=== PATIENT | male | born 1970 | race Two or more races ===

== ENCOUNTER 2017-07-19 00:16 | Emergency (ER) | payer OTHER ==
[2017-07-19] MEDS ORDERED: ONDANSETRON 4 MG TAB.RAPDIS PO ONE (00:24)
--- NOTE | 2017-07-19 00:25 | ER Document Report ---
ED General - General Chief Complaint: ETOH Abuse Stated Complaint: ETOH Time Seen by Provider: 07/19/17 00:24
--- NOTE | 2017-07-19 01:38 | ER Document Report ---
ED Psych Disorder / Suicide - General Chief Complaint: ETOH Abuse Stated Complaint: ETOH Time Seen by Provider: 07/19/17 00:24 Past Medical History - Social History Smoking Status: Unknown if Ever Smoked Chew tobacco use (# tins/day): No Frequency of alcohol use: ETOH
--- NOTE | 2017-07-19 06:10 | ER Document Report ---
ED Substance Abuse / Acc. OD - General Mode of Arrival: Medic Information source: Patient, Emergency Med Personnel - HPI Patient complains to provider of: Alcohol abuse - General Chief Complaint: ETOH Abuse Stated Complaint: ETOH Time Seen by Provider: 07/19/17 00:24 Notes: Patient is a 46-year-old Faroese-speaking male presented to the emergency department after being found by [employer] on a bench. Patient is intoxicated and a 40 ounce beer was also found in his backpack. Patient complains of some pain in his back. Patient is making claims that tomorrow he is going to be and he is suicidal. Patient also states that he is very sad about his family. Patient has been drinking a lot of alcohol and has had multiple episodes of nausea and vomiting. Patient's HPI is limited because he is intoxicated. Patient has been evaluated in this emergency department for similar symptoms in the past. (JANIE RAMOS) Past Medical History - General Information source: Patient - Social History Smoking Status: Unknown if Ever Smoked Chew tobacco use (# tins/day): No Frequency of alcohol use: Heavy Family History: None Surgical Hx: Negative Review of Systems - Review of Systems Constitutional: No symptoms reported EENT: No symptoms reported Cardiovascular: No symptoms reported Respiratory: No symptoms reported Gastrointestinal: See HPI, Nausea, Vomiting Genitourinary: No symptoms reported Male Genitourinary: No symptoms reported Musculoskeletal: See HPI, Back pain Skin: No symptoms reported Hematologic/Lymphatic: No symptoms reported Neurological/Psychological: See HPI -: Yes All other systems reviewed and negative Physical Exam - Notes Notes: GENERAL: Alert, intoxicated. Mild distress. HEAD: Normocephalic, atraumatic. EYES: Appear normal. Pupils equal, round, and reactive to light. ENT: Dry mucus membranes, tongue midline. NECK: Full range of motion. Supple. Trachea midline. LUNGS: Clear to auscultation bilaterally, no wheezes, rales, or rhonchi. No respiratory distress. HEART: Regular rate and rhythm. No murmurs, gallops, or rubs. ABDOMEN: Soft, non-tender. Non-distended. Normal bowel sounds. EXTREMITIES: Moves all 4 extremities spontaneously. Normal strength. No edema. NEUROLOGICAL: Alert and oriented x3. Normal speech, Faroese-speaking. GSC 15. PSYCH: Normal affect, normal mood. SKIN: Warm, dry, normal turgor. No rashes or lesions noted. (JANIE RAMOS) Course - Re-evaluation Re-evalutation: 07/19/17 07:01 Patient has been a difficult historian due to alcohol intoxication. Patient had initially stated that he was suicidal but no plan. Patient has been evaluated for alcohol abuse and suicidal ideation in the past with no plan. Patient is able to ambulate without difficulty and is able to tolerate p.o. He will be discharged home and is to follow-up with A. Stable for discharge. ( ANTWON GARCIA) Discharge - Discharge Clinical Impression: Alcohol abuse Alcohol intoxication Qualifiers: Complication of substance-induced condition: uncomplicated Qualified Code(s): F10.920 - Alcohol use, unspecified with intoxication, uncomplicated Condition: Stable Disposition: HOME, SELF-CARE Instructions: Acute Alcohol Intoxication ([facility]) Referrals: [facility] [Provider Group] - Follow up as needed [facility] [Provider Group] - Follow up as needed Scribe Attestation: 07/19/17 07:02 I personally performed the services described in the documentation, reviewed and edited the documentation which was dictated to the scribe in my presence, and it accurately records my words and actions. (ANTWON GARCIA) Scribe Documentation - Scribe Written by Scribtrent:: Janie Ramos, Dixie, 07/19/2017 6:10 acting as scribe for :: Marvel
[2017-07-19 07:05] VITALS: BP 104/70
== END 2017-07-19 07:07 | disposition home or self-care (01) ==
LOC: EDBD → ER 00:16
DX: F10.920 Alcohol use, unspecified with intoxication, uncomplicated (principal); R11.2 Nausea with vomiting, unspecified
CPT/HCPCS: 99284; S0119

== ENCOUNTER 2017-09-30 23:09 | Emergency (ER) | payer SELFPAY ==
--- NOTE | 2017-10-01 03:26 | ER Document Report ---
ED General - General Chief Complaint: Palpitations Stated Complaint: ETOH RACING HEART BEAT Time Seen by Provider: 10/01/17 03:26 Notes: Patient is a 46-year-old male well-known to ER who presents with complaint of feeling his heart is palpitating. He has a long history of alcoholism. He comes here frequently for chest pain whenever he is intoxicated. He mentions that he does still have the same chest pain that he always has the left upper portion of his chest just outside his sternum. This pain is again reproducible like it usually is. Patient denies any cocaine use. He has no other complaints at this time. TRAVEL OUTSIDE OF THE [place] IN LAST 30 DAYS: No - Related Data Allergies/Adverse Reactions: No Known Allergies Allergy (Unverified 09/30/17 23:18) Past Medical History - Social History Smoking Status: Current Some Day Smoker Frequency of alcohol use: Heavy Drug Abuse: None Family History: None Patient has suicidal ideation: No Patient has homicidal ideation: No Renal/ Medical History: Denies: Hx Peritoneal Dialysis Review of Systems - Review of Systems Notes: My Normal Review Basic REVIEW OF SYSTEMS: CONSTITUTIONAL : Denies fever, chills, or sweats. Denies recent illness. EENT: Denies eye, ear, throat, or mouth pain or symptoms. Denies nasal or sinus congestion. CARDIOVASCULAR: Chest pain, palpitations. RESPIRATORY: Denies cough, cold, or chest congestion. Denies shortness of breath, difficulty breathing, or wheezing. GASTROINTESTINAL: Denies abdominal pain. Denies nausea, vomiting, or diarrhea. Denies constipation. Last BM: MUSCULOSKELETAL: Denies neck or back pain or joint pain or swelling. SKIN: Denies rash or skin lesions. NEUROLOGICAL: Denies altered mental status or loss of consciousness. Denies headache. Denies weakness or paralysis or loss of use of either side. Denies problems with gait or speech. Denies sensory or motor loss. ALL OTHER SYSTEMS REVIEWED AND NEGATIVE. Physical Exam - Vital signs Vitals: Temp Pulse Resp BP Pulse Ox 98.4 F 86 18 113/72 100 09/30/17 23:18 09/30/17 23:18 09/30/17 23:18 09/30/17 23:18 09/30/17 23:18 - Notes Notes: General Appearance: Well nourished, alert, cooperative, no acute distress, no obvious discomfort. Well appearing. Vitals: reviewed, See vital signs table. Head: no swelling or tenderness to the head Eyes: PERRL, EOMI, Conjuctiva clear Mouth: No decreasd moisture Chest wall: Pain to palpation over left parasternal area. Lungs: No wheezing, No rales, No rhonci, No accessory muscle use, good air exchange bilaterally. Heart: Normal rate, Regular rythm, No murmur, no rub Abdomen: Normal BS, soft, No rigidity, No abdominal tenderness, No guarding, no rebound, no abdominal masses, no organomegaly Extremities: strength 5/5 in all extremities, good pulses in all extremities, no swelling or tenderness in the extremities, no edema. Skin: warm, dry, appropriate color, no rash Neuro: speech clear, oriented x 3, normal affect, responds appropriately to questions. Renal nerves II through XII are intact. Normal gait in the room. Moves all extremities without difficulty. Normal coordination. Course - Re-evaluation Re-evalutation: 10/01/17 03:26 EKG is reviewed and interpreted by me. EKG shows normal sinus rhythm with rate of [address] segment elevation or depression. No ischemic T-wave inversions. UT interval, QRS duration, QTc intervals are within normal range. 10/01/17 04:45 She is EKG and cardiac enzymes are negative. This pain is just like his typical recurrent pain and palpitations that he has been seen here for many many times in the past. His pain is reproducible palpation. I talked to him at length informed him he needs to cut back on his alcohol intake. He informed me that it is difficult for him to do. He also then informed me that he does not have money for place to live. I informed him that this is another good reason why he should try to cut back on alcohol use as all the money spends an alcohol could probably help him afford living accommodations. Encouraged to return to ER if he has recurrent worsening chest pain, vomiting, signs of alcohol withdrawal, or she feels unwell. Patient agrees with plan will be discharged home. Dictation of this chart was performed using voice recognition software; therefore, there may be some unintended grammatical errors. 10/01/17 06:15 - Vital Signs Vital signs: Temp Pulse Resp BP Pulse Ox 98.4 F 86 18 113/72 100 09/30/17 23:18 09/30/17 23:18 09/30/17 23:18 09/30/17 23:18 09/30/17 23:18 - Laboratory Result Diagrams: 10/01/17 03:40 Laboratory results interpreted by me: 10/01/17 03:40 Sodium 153.1 H Chloride 113 H Discharge - Discharge Clinical Impression: Palpitations, Alcohol abuse Chest pain Qualifiers: Chest pain type: unspecified Qualified Code(s): R07.9 - Chest pain, unspecified Condition: Good Disposition: HOME, SELF-CARE Instructions: Family Physicians / Practices Additional Instructions: Please cut back on your alcohol intake gradually until you are no longer drinking alcohol. Your tests today showed no concerning findings. Your EKG was normal. Please return to the ER if you have worsening chest pain or feel unwell. I have provided a list of local doctors. Please follow up with one of them due to your recurrent chronic chest pain.
[2017-10-01 04:30] LABS: ANION GAP 15 (5-19); BLOOD UREA NITROGEN 14 mg/dL (7-20); CALCIUM 9.4 mg/dL (8.4-10.2); CARBON DIOXIDE 25 mmol/L (22-30); CHLORIDE 113 mmol/L (98-107); CREATININE RESULT 0.86 mg/dL (0.52-1.25); GLUCOSE 91 mg/dL (75-110); POTASSIUM 3.8 mmol/L (3.6-5.0); SODIUM 153.1 mmol/L (137-145)
[2017-10-01 07:34] VITALS: BP 108/67
--- NOTE | 2017-10-01 15:28 | EKG REPORT ---
SEVERITY:- NORMAL ECG - SINUS RHYTHM : Confirmed by: Marleny Gay 01-Oct-2017 15:27:44
== END 2017-10-01 07:34 | disposition home or self-care (01) ==
LOC: ER 23:09
DX: R00.2 Palpitations (principal); R07.9 Chest pain, unspecified; F10.20 Alcohol dependence, uncomplicated; F17.200 Nicotine dependence, unspecified, uncomplicated
CPT/HCPCS: 36415; 80048; 83735; 84484; 93005; 93010; 99285

== ENCOUNTER 2017-10-21 21:44 | Emergency (ER) | payer SELFPAY ==
--- NOTE | 2017-10-21 22:49 | ER Document Report ---
HPI - HPI Pain Level: 3 Past Medical History - Social History Family History: None Renal/ Medical History: Denies: Hx Peritoneal Dialysis Vertical Provider Document - INFECTION CONTROL TRAVEL OUTSIDE OF THE [place] IN LAST 30 DAYS: No - RESPIRATORY O2 Sat by Pulse Oximetry: 97 Course - Vital Signs Vital signs: Temp Pulse Resp BP Pulse Ox 98.4 F 89 17 132/93 H 97 10/21/17 22:06 10/21/17 22:06 10/21/17 22:06 10/21/17 22:06 10/21/17 22:06
--- NOTE | 2017-10-21 22:54 | ER Document Report ---
ED General - General Chief Complaint: R hand pain Stated Complaint: RIGHT HAND PAIN Time Seen by Provider: 10/21/17 22:33 Mode of Arrival: Medic Information source: Patient Notes: Chris used for interpretation. Patient is complaining of snakebite to his right hand dorsal webspace between the thumb and index finger on . He saw pus come out and the pain is from the elbow down to his hand. There is one puncture wound. He also is complaining of vomiting blood this evening after drinking an extra 2-3 beers and he states he is an alcoholic. He says he has generalized abdominal pain. TRAVEL OUTSIDE OF THE [place] IN LAST 30 DAYS: No - Related Data Allergies/Adverse Reactions: No Known Allergies Allergy (Unverified 09/30/17 23:18) Past Medical History - General Information source: Patient - Social History Smoking Status: Current Every Day Smoker Frequency of alcohol use: Heavy Drug Abuse: None Lives with: Homeless Family History: None - Medical History Notes: alcoholism Renal/ Medical History: Denies: Hx Peritoneal Dialysis Surgical Hx: Negative Review of Systems - Review of Systems Constitutional: No symptoms reported EENT: No symptoms reported Cardiovascular: No symptoms reported Respiratory: No symptoms reported Gastrointestinal: See HPI Genitourinary: No symptoms reported Male Genitourinary: No symptoms reported Musculoskeletal: No symptoms reported Skin: See HPI Hematologic/Lymphatic: No symptoms reported Neurological/Psychological: No symptoms reported Physical Exam - Vital signs Vitals: Temp Pulse Resp BP Pulse Ox 98.4 F 89 17 132/93 H 97 10/21/17 22:06 10/21/17 22:06 10/21/17 22:06 10/21/17 22:06 10/21/17 22:06 Interpretation: Normal Notes: smells of ETOH - General General appearance: Appears well, Alert In distress: None - HEENT Head: Normocephalic, Atraumatic Eyes: Normal Conjunctiva: Normal Pupils: PERRL Mucous membranes: Dry Neck: Supple. No: Lymphadenopathy - Respiratory Respiratory status: No respiratory distress Chest status: Nontender Breath sounds: Normal Chest palpation: Normal - Cardiovascular Rhythm: Regular Heart sounds: Normal auscultation Murmur: No - Abdominal Inspection: Normal Distension: No distension Bowel sounds: Normal Tenderness: Nontender. No: Tender Organomegaly: No organomegaly - Back Back: Normal, Nontender - Extremities General upper extremity: Normal inspection, Nontender, Normal color, Normal ROM , Normal temperature General lower extremity: Normal inspection, Nontender, Normal color, Normal ROM , Normal temperature, Normal weight bearing. No: Mattie's sign Hip: Tender, Other - 1- 1 mm crusted puncture right dorsal hand thenar aspect between thumb and index finger, no erythema or lymphangitis. - Neurological Neuro grossly intact: Yes Cognition: Normal Orientation: AAOx4 [place] Coma Scale Eye Opening: Spontaneous [place] Coma Scale Verbal: Oriented [place] Coma Scale Motor: Obeys Commands Ynes Coma Scale Total: 15 Speech: Normal Motor strength normal: LUE, RUE, LLE, RLE Sensory: Normal - Psychological Associated symptoms: Flat affect - Skin Skin Temperature: Warm Skin Moisture: Dry Skin Color: Normal Skin irregularity: other - see above Course - Re-evaluation Re-evalutation: 10/21/17 23:31 consult [facility]den barron, he knows this pt, the vomiting blood is usually from the ETOH, no worry about the snakebite if it was on . 10/22/17 00:19 pt drank fluids and ate crackers, is asleep now. 10/22/17 00:21 he arouses to touch but then falls asleep again. will let him sleep until 2 am. 10/21/17 01:23 pt awoken, stable walk to bathroom, vitals stable. - Vital Signs Vital signs: Temp Pulse Resp BP Pulse Ox 98.2 F 67 18 120/72 98 10/22/17 01:23 10/22/17 01:23 10/22/17 01:23 10/22/17 01:23 10/22/17 01:23 - Laboratory Result Diagrams: 10/21/17 23:06 10/21/17 23:06 Laboratory results interpreted by me: 10/21/17 10/21/17 23:06 23:06 Hgb 17.1 H MCV 99 H MCH 35.2 H Sodium 147.2 H AST 141 H ALT 131 H Lipase 349.8 H Discharge - Discharge Clinical Impression: Liver enzyme elevation, Alcohol abuse, Right hand puncture wound Snake bite Qualifiers: Encounter type: initial encounter Qualified Code(s): W59.11XA - Bitten by nonvenomous snake, initial encounter Condition: Good Disposition: HOME, SELF-CARE Instructions: Alcoholic Hepatitis ([facility]), Bactroban Ointment ([facility]), Chronic Alcoholism ([facility]), Liver Function Abnormality ([facility]), Puncture Wound ([facility]), Snakebites ([facility]) Additional Instructions: bactroban to hand wound three times per day to er if worse your liver enzymes are elevated, you need to stop drinking alcohol
[2017-10-21] MEDS ORDERED: LANSOPRAZOLE 30 MG TAB.RAP.DR PO ONE (23:20)
[2017-10-21] MEDS ORDERED: FAMOTIDINE 20 MG TABLET PO ONE (23:20)
[2017-10-21 23:25] LABS: ABSOLUTE EOSINOPHILS # (AUTO) 0.2 10^3/uL (0.0-0.6); ABSOLUTE LYMPHOCYTES (AUTO) 1.7 10^3/uL (0.5-4.7); ABSOLUTE MONOCYTES (AUTO) 0.5 10^3/uL (0.1-1.4); BASOPHILS % (AUTO) 0.4 % (0-2); EOSINOPHILS % (AUTO) 1.8 % (0-6); HEMATOCRIT 48.1 % (37.9-51.0); HEMOGLOBIN 17.1 g/dL (13.5-17.0); HGB HCT DIFFERENCE 3.2; LYMPHOCYTES % (AUTO) 20.6 % (13-45); MEAN CORPUSCULAR HEMOGLOBIN 35.2 pg (27.0-33.4); MEAN CORPUSCULAR HGB CONC 35.6 g/dL (32.0-36.0); MEAN CORPUSCULAR VOLUME 99 fl (80-97); RED BLOOD COUNT 4.86 10^6/uL (4.35-5.55); RED CELL DISTRIBUTION WIDTH 12.3 % (11.5-14.0); SEGMENTED NEUTROPHILS % (AUTO) 71.2 % (42-78); WHITE BLOOD COUNT 8.5 10^3/uL (4.0-10.5)
[2017-10-21] MEDS ORDERED: MUPIROCIN 2% OINTMENT 22 GM TP ONE (23:30)
[2017-10-21 23:41] LABS: PROTHROMBIN TIME 12.9 SEC (11.4-15.4)
[2017-10-21 23:52] LABS: ALANINE AMINOTRANSFERASE 131 U/L (21-72); ALBUMIN 4.4 g/dL (3.5-5.0); ALKALINE PHOSPHATASE 73 U/L (38-126); ANION GAP 17 (5-19); ASPARTATE AMINO TRANSFERASE 141 U/L (17-59); BILIRUBIN,DIRECT 0.4 mg/dL (0.0-0.4); BILIRUBIN,TOTAL 0.4 mg/dL (0.2-1.3); BLOOD UREA NITROGEN 16 mg/dL (7-20); CALCIUM 8.7 mg/dL (8.4-10.2); CARBON DIOXIDE 26 mmol/L (22-30); CHLORIDE 104 mmol/L (98-107); CREATININE RESULT 0.74 mg/dL (0.52-1.25); GLUCOSE 109 mg/dL (75-110); LIPASE 349.8 U/L (23-300); POTASSIUM 3.6 mmol/L (3.6-5.0); SODIUM 147.2 mmol/L (137-145); TOTAL PROTEIN 6.8 g/dL (6.3-8.2)
--- NOTE | 2017-10-22 00:09 | RADIOLOGY REPORT (SQ) ---
EXAM DESCRIPTION: HAND RIGHT 3 VIEWS COMPLETED DATE/TIME: 10/21/2017 11:23 pm REASON FOR STUDY: bite right hand COMPARISON: None. EXAM PARAMETERS: NUMBER OF VIEWS: Three views. TECHNIQUE: AP, lateral and oblique radiographic images acquired of the right hand. LIMITATIONS: None. FINDINGS: MINERALIZATION: Normal. BONES: No acute fracture or dislocation. No worrisome bone lesions. Mild osteoarthritis. 0.3 cm de velopmental lucency of the distal capitate. JOINTS: No effusions. SOFT TISSUES: Known swelling of the 2nd digit. OTHER: No other significant finding. IMPRESSION: Mild swelling. No acute bone or joint defect. TECHNICAL DOCUMENTATION: JOB ID: [id number] [employer]- All Rights Reserved
[2017-10-22 01:24] VITALS: BP 120/72
== END 2017-10-22 01:23 | disposition home or self-care (01) ==
LOC: ER 21:44
DX: S61.431A Puncture wound without foreign body of right hand, initial encounter (principal); R74.8 Abnormal levels of other serum enzymes; F10.10 Alcohol abuse, uncomplicated; W59.11XA Bitten by nonvenomous snake, initial encounter; F17.200 Nicotine dependence, unspecified, uncomplicated
CPT/HCPCS: 99284; 36415; 83690; 85025; 85610; 85730; 80053; 73130; J3490

== ENCOUNTER 2017-10-31 22:20 | Emergency (ER) | payer SELFPAY ==
--- NOTE | 2017-10-31 23:00 | ER Document Report ---
ED General - General Chief Complaint: ETOH Abuse Stated Complaint: PSYCH EVAL Time Seen by Provider: 10/31/17 22:59 Cannot obtain history due to: Intoxicated, Uncooperative Notes: Patient is a 46-year-old male well known to me in this emergency department who presents intoxicated. Patient contacted EMS apparently due to it being cold outside by his own report and states that he has chronic right upper quadrant and epigastric abdominal pain that "you never addressed whenever I come here". He does admit to ongoing heavy alcohol and marijuana use tonight. He is extremely belligerent and agitated at time of assessment and unable to provide him with any additional significant details regarding his abdominal pain. The history and physical exam was obtained by the provider using Greenlandic. A formal hospital insulation cutter and former was offered to the patient and any family at the bedside at the beginning of the encounter and was declined. TRAVEL OUTSIDE OF THE [place] IN LAST 30 DAYS: No - Related Data Allergies/Adverse Reactions: No Known Allergies Allergy (Unverified 09/30/17 23:18) Past Medical History - General Information source: Patient - Social History Smoking Status: Never Smoker Chew tobacco use (# tins/day): No Frequency of alcohol use: Heavy Drug Abuse: Marijuana Lives with: Spouse/Significant other Family History: Reviewed & Not Pertinent Patient has suicidal ideation: No Patient has homicidal ideation: No Renal/ Medical History: Denies: Hx Peritoneal Dialysis Review of Systems - Review of Systems -: Yes ROS unobtainable due to patient's medical condition Physical Exam - Vital signs Vitals: Temp Pulse Resp BP Pulse Ox 98.1 F 82 19 132/78 H 99 10/31/17 22:25 10/31/17 22:25 10/31/17 22:25 10/31/17 22:25 10/31/17 22:25 Interpretation: Normal Notes: PHYSICAL EXAMINATION: GENERAL: Agitated, combative, in no obvious distress, smells strongly of alcohol HEAD: Atraumatic, normocephalic. EYES: Pupils equal round and reactive to light, extraocular movements intact, sclera anicteric, conjunctiva are normal. ENT: nares patent, oropharynx clear without exudates. Moderately dry mucous membranes. NECK: Normal range of motion, supple without lymphadenopathy LUNGS: Breath sounds clear to auscultation bilaterally and equal. No wheezes rales or rhonchi. HEART: Regular rate and rhythm without murmurs ABDOMEN: Soft, nontender, normoactive bowel sounds. No guarding, no rebound. No masses appreciated. EXTREMITIES: Normal range of motion, no pitting or edema. No cyanosis. NEUROLOGICAL: No focal neurological deficits. Moves all extremities spontaneously and on command. PSYCH: Agitated, intoxicated SKIN: Warm, Dry, normal turgor, no rashes or lesions noted. Course - Re-evaluation Re-evalutation: 10/31/17 23:01 Patient arrives agitated, combative, yelling at staff. He is threatening security members calling them racist and pigs. The patient does not appear to be in any distress, clearly ambulate around the emergency department without difficulty making threatening gestures toward staff. I provided a medical screening exam for this patient. He is intoxicated and combative but is somewhat redirectable. He denies any acute suicidal ideation tonight. 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 However I did do a bedside right upper quadrant ultrasound that did not demonstrate any evidence of acute cholecystitis without any pericholecystic fluid, gallbladder wall thickening or gallstones. Patient had labs done 8 days ago that showed LFT elevations likely again secondary to patient's alcohol use. I have emphasized to the patient at length the importance of discontinuing alcohol use and getting into rehab as he frequently comes to emergency department in this condition. Due to his ongoing belligerence, patient was an immediate safety risk to himself and staff and police had to be contacted. He will be discharged at this time and I do not suspect any acute life-threatening emergency at this time. - Vital Signs Vital signs: Temp Pulse Resp BP Pulse Ox 98.1 F 79 18 133/89 H 97 10/31/17 22:25 10/31/17 23:08 10/31/17 23:08 10/31/17 23:08 10/31/17 23:08 Discharge - Discharge Clinical Impression: Right upper quadrant abdominal pain Alcohol intoxication Qualifiers: Complication of substance-induced condition: uncomplicated Qualified Code(s): F10.920 - Alcohol use, unspecified with intoxication, uncomplicated Condition: Good Disposition: HOME, SELF-CARE Additional Instructions: You were seen in the emergency department today for being drunk. Being seen in the emergency department after drinking alcohol is a serious indicator that you have a problem with alcohol. You should seek help with the attached resources for your problem drinking. Please return to the emergency room immediately if you experience any concerning symptoms including high fevers, severe headache, chest pain, difficulty breathing, abdominal pain, slurred speech, numbness or weakness in your arms or legs, or any other symptom that concerns you.
[2017-11-01 00:04] VITALS: BP 133/89
== END 2017-10-31 23:08 | disposition home or self-care (01) ==
LOC: ER 22:20
DX: F10.920 Alcohol use, unspecified with intoxication, uncomplicated (principal); R10.11 Right upper quadrant pain; R10.13 Epigastric pain
CPT/HCPCS: 99284

== ENCOUNTER 2017-11-22 19:14 | Emergency (ER) | payer SELFPAY ==
[2017-11-22 20:17] LABS: APPEARANCE,URINE CLEAR; BILIRUBIN,URINE NEGATIVE (NEGATIVE); GLUCOSE, URINE NEGATIVE (NEGATIVE); KETONES,URINE NEGATIVE (NEGATIVE); LEUKOCYTE ESTERASE,URINE NEGATIVE (NEGATIVE); NITRITE,URINE NEGATIVE (NEGATIVE); PROTEIN,URINE NEGATIVE (NEGATIVE); URINE SPECIFIC GRAVITY 1.004; UROBILINOGEN,URINE NEGATIVE mg/dL (<2.0)
--- NOTE | 2017-11-22 20:19 | ER Document Report ---
ED Medical Screen (RME) - General Mode of Arrival: Ambulatory Information source: Patient TRAVEL OUTSIDE OF THE [place] IN LAST 30 DAYS: No - General Chief Complaint: Psych Problem Stated Complaint: SUICIDAL IDEATIONS Time Seen by Provider: 11/22/17 19:30 Notes: Patient is a 46 year old male who is brought to the emergency department by a member from [facility] with reports of suicidal ideation. Patient sttes that he has been having suicidal ideation for a long time. Patient states multiple times that he wants someone to give him the "electric chair and just be done with everything, all the problems would be solved". When asked why he wants to hurt himself patient states that he lost his children, is an alcoholic and homeless. Patient also states that no one will help him. He states that hes tried to get help before but no one has told him where to go. At bedside patient states he became dizzy. Patient also complained of headache and RUQ abdominal pain. I have greeted and performed a rapid initial assessment of this patient. A comprehensive ED assessment and evaluation of the patient, analysis of test results and completion of the medical decision making process will be conducted by additional ED providers. (LINA CAICEDO) - Related Data Allergies/Adverse Reactions: No Known Allergies Allergy (Verified 11/22/17 19:55) Past Medical History - Social History Frequency of alcohol use: Heavy Renal/ Medical History: Denies: Hx Peritoneal Dialysis Physical Exam - Vital signs Vitals: Temp Pulse Resp BP Pulse Ox 97.6 F 94 20 117/87 H 95 11/22/17 19:21 11/22/17 19:21 11/22/17 19:21 11/22/17 19:21 11/22/17 19:21 - Notes Notes: GENERAL: Alert. No acute distress. LUNGS: Clear to auscultation bilaterally, no wheezes, rales, or rhonchi. No respiratory distress. HEART: Regular rate and rhythm. No murmurs, gallops, or rubs. ABDOMEN: Soft, non-tender. Non-distended. Bowel sounds present in all 4 quadrants. (LINA CAICEDO) Tearful, agitated, grabs his head and then starts leaning over the desk, acts somewhat fatigued for approximately 2-3 minutes and then all of a sudden stands up and is back to being quite animated with somewhat labile mood. Neurologically intact (JAYLYN MCNEAL) Course - Re-evaluation Re-evalutation: 11/22/17 20:55 Given his degree of intoxication IVC petition will be filled out however examination will wait until the morning when he is sober. (JAYLYN MCNEAL) - Vital Signs Vital signs: Temp Pulse Resp BP Pulse Ox 97.6 F 94 20 117/87 H 95 11/22/17 19:21 11/22/17 19:21 11/22/17 19:21 11/22/17 19:21 11/22/17 19:21 Doctor's Discharge - Discharge Clinical Impression: Suicidal thoughts, Homelessness, Chronic alcohol abuse Condition: Stable Disposition: PSYCH HOSP/UNIT Scribe Documentation - Scribe Written by Dixie:: Dixie Tinsley, 11/22/2017 20:41 acting as scribe for :: Taylor
--- NOTE | 2017-11-22 20:22 | ER Document Report ---
ED Psych Disorder / Suicide - General Chief Complaint: Psych Problem Stated Complaint: SUICIDAL IDEATIONS Time Seen by Provider: 11/22/17 19:30 Mode of Arrival: Ambulatory Notes: History obtained using Samreen and from triage. Patient is a 46-year-old male, chronic alcoholic, homeless, presents after he is having thoughts of hurting himself. He says he plans to jump off a bridge or cut self. States he's having lots of "bad thoughts." States "put me in the electric chair and it'll be over faster." States he doesn't have his children, lives on the streets, and is an alcoholic. States his family doesn't want to help him. States he's unable to sleep. Mobile crisis states pt attempted to self harm last night but "God helped me stop. I know there is a hell and the Devil down there and I don't want to go there." Patient says that he will stay to mental health in the morning. TRAVEL OUTSIDE OF THE [place] IN LAST 30 DAYS: No - Related Data Allergies/Adverse Reactions: No Known Allergies Allergy (Verified 11/22/17 19:55) Past Medical History - General Information source: Patient - Social History Smoking Status: Unknown if Ever Smoked Frequency of alcohol use: Heavy Family History: Reviewed & Not Pertinent Patient has suicidal ideation: Yes Patient has homicidal ideation: No Renal/ Medical History: Denies: Hx Peritoneal Dialysis Review of Systems - Review of Systems Notes: REVIEW OF SYSTEMS: CONSTITUTIONAL: -fevers, -chills EENT: -eye pain, -difficulty swallowing, -nasal congestion CARDIOVASCULAR:-chest pain, -syncope. RESPIRATORY: -cough, -SOB GASTROINTESTINAL: -abdominal pain, - nausea, -vomiting, -diarrhea GENITOURINARY: -dysuria, -hematuria MUSCULOSKELETAL: -back pain, -neck pain SKIN: -rash or skin lesions. HEMATOLOGIC: -easy bruising or bleeding. LYMPHATIC: -swollen, enlarged glands. NEUROLOGICAL: -altered mental status or loss of consciousness, -headache, - neurologic symptoms PSYCHIATRIC: -anxiety, +depression, +SI ALL OTHER SYSTEMS REVIEWED AND NEGATIVE. Physical Exam - Vital signs Vitals: Temp Pulse Resp BP Pulse Ox 97.6 F 94 20 117/87 H 95 11/22/17 19:21 11/22/17 19:21 11/22/17 19:21 11/22/17 19:21 11/22/17 19:21 - Notes Notes: PHYSICAL EXAMINATION: GENERAL: No acute distress. HEAD: Atraumatic, normocephalic. EYES: Pupils equal round and reactive to light, extraocular movements intact, sclera anicteric, conjunctiva are normal. ENT: nares patent, oropharynx clear without exudates. Moist mucous membranes. NECK: Normal range of motion, supple without lymphadenopathy LUNGS: Breath sounds clear to auscultation bilaterally and equal. No wheezes rales or rhonchi. HEART: Regular rate and rhythm without murmurs ABDOMEN: Soft, nontender, normoactive bowel sounds. No guarding, no rebound. No masses appreciated. EXTREMITIES: Normal range of motion, no pitting or edema. No cyanosis. NEUROLOGICAL: Cranial nerves grossly intact. Normal speech, normal gait. Normal sensory and motor exams. PSYCH: Depressed mood. SKIN: Warm, Dry, normal turgor, no rashes or lesions noted. Course - Re-evaluation Re-evalutation: Patient chronically has thoughts of hurting himself. It is raining outside and he says that he is homeless. Requesting food. ETOH level is 320. He agrees to stay overnight to speak to mental health in the morning. He is not on any antidepressants and says that he is continuing to drink daily, but has never had any alcohol withdrawal symptoms. We will continue to monitor and have mental health evaluate the patient in the morning when he is more sober. - Vital Signs Vital signs: Temp Pulse Resp BP Pulse Ox 97.6 F 94 20 117/87 H 95 11/22/17 19:21 11/22/17 19:21 11/22/17 19:21 11/22/17 19:21 11/22/17 19:21 - Laboratory Result Diagrams: 11/22/17 21:04 11/22/17 21:04 Laboratory results interpreted by me: 11/22/17 11/22/17 21:04 21:04 Hgb 17.1 H MCV 100 H MCH 35.1 H Sodium 148.3 H Chloride 109 H AST 101 H ALT 152 H Salicylates < 1.0 L Acetaminophen < 10 L Serum Alcohol 327 H* Discharge - Discharge Clinical Impression: Suicidal thoughts, Homelessness, Chronic alcohol abuse Condition: Stable Disposition: PSYCH HOSP/UNIT
[2017-11-22 20:34] LABS: URINE BARBITURATES SCREEN NEGATIVE; URINE METHADONE SCREEN NEGATIVE; URINE OPIATES LOW NEGATIVE; URINE PHENCYCLIDINE SCREEN NEGATIVE
[2017-11-22 21:22] LABS: ABSOLUTE EOSINOPHILS # (AUTO) 0.2 10^3/uL (0.0-0.6); ABSOLUTE LYMPHOCYTES (AUTO) 2.1 10^3/uL (0.5-4.7); ABSOLUTE MONOCYTES (AUTO) 0.5 10^3/uL (0.1-1.4); ABSOLUTE NEUT (AUTO) 3.4 10^3/uL (1.7-8.2); BASOPHILS % (AUTO) 0.6 % (0-2); EOSINOPHILS % (AUTO) 2.8 % (0-6); HEMATOCRIT 48.5 % (37.9-51.0); HEMOGLOBIN 17.1 g/dL (13.5-17.0); HGB HCT DIFFERENCE 2.8; LYMPHOCYTES % (AUTO) 33.3 % (13-45); MEAN CORPUSCULAR HEMOGLOBIN 35.1 pg (27.0-33.4); MEAN CORPUSCULAR HGB CONC 35.2 g/dL (32.0-36.0); MEAN CORPUSCULAR VOLUME 100 fl (80-97); MONOCYTES % (AUTO) 8.4 % (3-13); RED BLOOD COUNT 4.86 10^6/uL (4.35-5.55); RED CELL DISTRIBUTION WIDTH 12.6 % (11.5-14.0); SEGMENTED NEUTROPHILS % (AUTO) 54.9 % (42-78); WHITE BLOOD COUNT 6.2 10^3/uL (4.0-10.5)
[2017-11-22 21:35] LABS: ALANINE AMINOTRANSFERASE 152 U/L (21-72); ALBUMIN 4.5 g/dL (3.5-5.0); ALKALINE PHOSPHATASE 64 U/L (38-126); ANION GAP 16 (5-19); ASPARTATE AMINO TRANSFERASE 101 U/L (17-59); BILIRUBIN,DIRECT 0.2 mg/dL (0.0-0.4); BILIRUBIN,TOTAL 0.2 mg/dL (0.2-1.3); BLOOD UREA NITROGEN 13 mg/dL (7-20); CARBON DIOXIDE 23 mmol/L (22-30); CHLORIDE 109 mmol/L (98-107); CREATININE RESULT 0.85 mg/dL (0.52-1.25); GLUCOSE 100 mg/dL (75-110); POTASSIUM 4.1 mmol/L (3.6-5.0); SODIUM 148.3 mmol/L (137-145); TOTAL PROTEIN 7.4 g/dL (6.3-8.2)
[2017-11-22 21:47] LABS: ALCOHOL 327 mg/dL (NONE DETECTED)
--- NOTE | 2017-11-22 22:25 | RADIOLOGY REPORT (SQ) ---
EXAM DESCRIPTION: CT HEAD WITHOUT COMPLETED DATE/TIME: 11/22/2017 10:03 pm REASON FOR STUDY: altered mental status, CLARK, "feels like I'm dying" COMPARISON: None. TECHNIQUE: Axial images acquired through the brain without intravenous contrast. Images reviewed wi th bone, brain and subdural windows. Images stored on PACS. All CT scanners at this facility use dose modulation, iterative reconstruction, and/or weight based d osing when appropriate to reduce radiation dose to as low as reasonably achievable (ALARA). [facility]: Dose Right [facility]: CareDose [facility]: Dose Right [facility]: Teradose 4D [facility]: Smart [employer] RADIATION DOSE: CT Rad equipment meets quality standard of care and radiation dose reduction techniq ues were employed. CTDIvol: 64.6 mGy. DLP: 1163 mGy-cm. mGy. LIMITATIONS: None. FINDINGS: VENTRICLES: Normal size and contour. CEREBRUM: No masses. No hemorrhage. No midline shift. No evidence for acute infarction. Normal gra y/white matter differentiation. No areas of low density in the white matter. CEREBELLUM: No masses. No hemorrhage. No alteration of density. No evidence for acute infarction. EXTRAAXIAL SPACES: No fluid collections. No masses. ORBITS AND GLOBE: No intra- or extraconal masses. Normal contour of globe without masses. CALVARIUM: No fracture. PARANASAL SINUSES: Bilateral maxillary sinus fluid - mucosal thickening. SOFT TISSUES: No mass or hematoma. OTHER: No other significant finding. IMPRESSION: No acute intracranial findings. Bilateral maxillary sinusitis. EVIDENCE OF ACUTE STROKE: NO. COMMENT: Quality ID # [id number]: Final reports with documentation of one or more dose reduction techniques (e.g., Automated exposure control, adjustment of the mA and/or kV according to patient size, use of iterative reconstruction technique) TECHNICAL DOCUMENTATION: JOB ID: [id number] [place]-72 2010 [email or web address]- All Rights Reserved
--- NOTE | 2017-11-23 07:58 | EKG REPORT ---
SEVERITY:- NORMAL ECG - SINUS RHYTHM : Confirmed by: Hilton Card MD 23-Nov-2017 07:57:37
--- NOTE | 2017-11-23 09:48 | ER Document Report ---
Doctor's Note Notes: 11/23/17 09:48 Patient has been seen and evaluated resting comfortably no acute distress. Laboratory values previous provider note and vital signs have been evaluated. Patient otherwise looks to be stable for disposition/transfer.
[2017-11-23 09:50] VITALS: BP 131/80
--- NOTE | 2017-11-23 10:35 | PSYCHOLOGICAL NOTE ---
Psych Note - Psych Note Psych Note: please note this patient is well know to this department and this clinician and has multiple records [id number], [id number], [id number] Reason for consult: IVC, suicidal comments, alcoholic Consent permissions: Patient is a 46-year-old male, chronic alcoholic, homeless, presents after he is having thoughts of hurting himself. He says he plans to jump off a bridge or cut self. States he's having lots of "bad thoughts." States "put me in the electric chair and it'll be over faster." States he doesn't have his children, lives on the streets, and is an alcoholic. States his family doesn't want to help him. States he's unable to sleep. Mobile crisis states pt attempted to self harm last night but "God helped me stop. I know there is a hell and the Devil down there and I don't want to go there." Patient says that he will stay to mental health in the morning. Patient states he came to [facility] with a Mobile Crisis (MC) worker this time, not EMS. He disclosed the MC worker was going to help him get into a program. He continued to disclose he drank about 5 beers and he still has sadness; "I have good days and bad days." When asked about the program the patient left after 2 weeks last May (patient was accepted into a one year program and left because he didn't like the food), the patient replied it was not a good program because he had to sit on the floor. He is concerned that he doesn't have the contact information for the MC worker; patient was provided community resource list that has MC contact numbers. Patient is alert and orientated to person, place, time and circumstance. Mood is euthymic with restricted affect clinician notes patient is currently under the influence and was awoken for evaluation. It it also noted the patient was saying he was good initially upon waking until he realized where he was. Patient endorses passive suicidal ideation that is chronic. Patient discloses multiple plans these plans. Patient denies homicidal ideation. Patient denies auditory visual hallucinations. Delusions are absent and behaviors congruent with the intact reality based presentation i.e. organized and linear thinking, even with his blood alcohol level, suggesting patient is a high functioning alcoholic. Eye contact was fair. Conversational speech was in Turkmen with some Korean. Intellectual ability appears to be within the average range. Attention and concentration were fair. Insight, judgment, impulse control is poor due to alcoholism. Clinician noted during the patient's 06/05/5017 [facility] visit, collateral was collected from brother at that time: Patient's brother, Shahid [phone], disclosed the patient is pretty much homeless however he does stay with him or his other brother. He continued disclosed that the patient is a binge drinker and when he drinks he is mean and insults people. Patient has been in multiple substance abuse treatment facilities. He continues state that "there is nothing I can do for him anymore. " He states 2 weeks ago (May 2017) the patient went to [facility] where they found the patient a bed at [facility] which is a one-year treatment program. Patient apparently walked out after just 2 days because he did not like the food or atmosphere. Patient's brother continued disclosed that he does not want to get involved after seeing the patient years and years of doing the damage that he has created and he never sees anything wrong with himself. He states that the patient is always saying suicidal comments such as "I only have a few days left" or "this is the last time you see me." Patient's brother states that the patient does not to get attention and that the family just does not listen to him anymore. He continued to state that he thinks the patient just wants to have someone take care of him. 303.90 (F10.20) alcohol related disorder; severe Impression\\plan: Patient is recommended for rescind of IVC and is considered psychiatrically clear. Patient no longer meets IVC criteria per [place] GS 122C. Patient discloses chronic suicidal ideation with multiple plans while intoxicated (jumping off a bridge, cut himself, electric chair); he doesn't discusses thoughts of suicide with clinician, only about his substance abuse and having sadness. Patient's brother has disclosed in the past (to this clinician) that this is a chronic thought process for the patient. Historically , the patient denies suicidal ideation once sober. Patient has been provided multiple opportunities for substance abuse treatment. Patient has shown a pattern of come coming into [facility] for secondary gain when the weather is more extreme ie hot, cold, raining multiple days in a row (patient has been homeless for well over a year now). Patient was placed under IVC because his cognitive processes were impaired due to being acutely intoxicated. Patient has been provided the substance abuse resource packet on multiple occasions and received another day; he is recommended for substance abuse treatment. Dr. Armstrong was consulted and the care and management of this patient; attending physician is in agreement with recommendations and disposition.
== END 2017-11-23 12:25 | disposition home or self-care (01) ==
LOC: ER 19:14
DX: F32.9 Major depressive disorder, single episode, unspecified (principal); R45.851 Suicidal ideations; Z59.0 Homelessness; F10.20 Alcohol dependence, uncomplicated; Y90.8 Blood alcohol level of 240 mg/100 ml or more; R51 Headache; R10.11 Right upper quadrant pain
CPT/HCPCS: 36415; 70450; 80053; 80307; 81001; 85025; 93005; 93010; 99285

== ENCOUNTER 2017-12-24 08:56 | Emergency (ER) | payer OTHER ==
[2017-12-24 09:06] VITALS: BP 128/89
--- NOTE | 2017-12-24 09:29 | ER Document Report ---
ED Medical Screen (RME) - General Mode of Arrival: Ambulatory Information source: Patient TRAVEL OUTSIDE OF THE [place] IN LAST 30 DAYS: No - HPI Patient complains to provider of: Dysuria and Burning with urination Onset: Other - 3 days ago Associated Symptoms: Other - see notes above - Related Data Frequency of alcohol use: Heavy <MELQUIADES RODRIGUEZ - Last Filed: 12/24/17 09:25> <JULIO CESARLUISA Hensley - Last Filed: 12/26/17 10:49> - General Chief Complaint: Abdominal Pain Stated Complaint: BLOOD IN URINE/ABDOMINAL PAIN Time Seen by Provider: 12/24/17 09:18 Notes: 47 year old Nepali speaking male presents to the ED complaining of dysuria, hematuria, and burning with urination that started 3 days ago and worsened today. Patient reports pain only with urination. Patient denies any fevers. Friend states that the patient is a heavy alcohol user and reports quitting yesterday. (MELQUIADES RODRIGUEZ) - Related Data Allergies/Adverse Reactions: No Known Allergies Allergy (Verified 11/22/17 19:55) Past Medical History - General Information source: Patient - Social History Frequency of alcohol use: Heavy Renal/ Medical History: Denies: Hx Peritoneal Dialysis <MELQUIADES RODRIGUEZ - Last Filed: 12/24/17 09:25> Review of Systems - Review of Systems Constitutional: No symptoms reported EENT: No symptoms reported Cardiovascular: No symptoms reported Respiratory: No symptoms reported Gastrointestinal: No symptoms reported Genitourinary: See HPI, Burning, Dysuria, Hematuria, Pain Male Genitourinary: No symptoms reported Musculoskeletal: No symptoms reported Skin: No symptoms reported Hematologic/Lymphatic: No symptoms reported Neurological/Psychological: No symptoms reported -: Yes All other systems reviewed and negative <MELQUIADES RODRIGUEZ - Last Filed: 12/24/17 09:25> Physical Exam - General General appearance: Alert In distress: None - HEENT Head: Normocephalic, Atraumatic Eyes: Normal Extraocular movements intact: Yes Pupils: PERRL - Respiratory Respiratory status: No respiratory distress Breath sounds: Normal - Cardiovascular Rhythm: Regular Heart sounds: Normal auscultation - Abdominal Inspection: Normal Bowel sounds: Normal Tenderness: Nontender <MELQUIADES RODRIGUEZ - Last Filed: 12/24/17 09:25> - Vital signs Vitals: Temp Pulse Resp BP Pulse Ox 98.2 F 76 18 128/89 H 98 12/24/17 09:03 12/24/17 09:03 12/24/17 09:03 12/24/17 09:03 12/24/17 09:03 Course - Laboratory Result Diagrams: 12/24/17 09:39 12/24/17 09:39 <LUISA HARRELL H - Last Filed: 12/26/17 10:49> - Vital Signs Vital signs: Temp Pulse Resp BP Pulse Ox 98.2 F 76 18 128/89 H 98 12/24/17 09:03 12/24/17 09:03 12/24/17 09:03 12/24/17 09:03 12/24/17 09:03 - Laboratory Laboratory results interpreted by me: 12/24/17 12/24/17 12/24/17 09:39 09:39 09:45 Hgb 17.5 H MCV 100 H MCH 34.5 H Plt Count 128 L Glucose 132 H AST 127 H ALT 211 H Urine Ketones TRACE H Urine Urobilinogen 4.0 H Doctor's Discharge <MELQUIADES RODRIGUEZ - Last Filed: 12/24/17 09:25> <LUISA HARRELL - Last Filed: 12/26/17 10:49> - Discharge Clinical Impression: History of chronic alcohol use, Dehydration Abdominal pain Qualifiers: Abdominal location: unspecified location Qualified Code(s): R10.9 - Unspecified abdominal pain Disposition: HOME, SELF-CARE Instructions: Alcohol Withdrawl ([facility]), Chronic Alcoholism ([facility]), Dehydration ( [facility]), Gastritis ([facility]) Additional Instructions: Your abdominal pain is more likely related to your alcohol use. Please use Librium as provided. Return to the ER if symptoms worsen. Take medications as prescribed. Please follow-up with the resources provided. Prescriptions: Chlordiazepoxide HCl [Librium 25 mg Capsule] 1 cap PO QID #10 capsule Omeprazole 20 mg PO DAILY #20 capsule. Sucralfate [Carafate 1 gm Tablet] 1 gm PO ACHS #60 tablet Referrals: [facility] [Outside] - Follow up as needed Scribe Documentation - Scribe Written by Scribe:: Dixie Herzog, 12/24/201729 acting as scribe for :: Julio Cesar <MELQUIADES RODRIGUEZ - Last Filed: 12/24/17 09:25>
[2017-12-24 09:50] LABS: ABSOLUTE EOSINOPHILS # (AUTO) 0.2 10^3/uL (0.0-0.6); ABSOLUTE LYMPHOCYTES (AUTO) 0.8 10^3/uL (0.5-4.7); ABSOLUTE MONOCYTES (AUTO) 0.5 10^3/uL (0.1-1.4); ABSOLUTE NEUT (AUTO) 4.2 10^3/uL (1.7-8.2); BASOPHILS % (AUTO) 0.5 % (0-2); EOSINOPHILS % (AUTO) 3.2 % (0-6); HEMATOCRIT 50.5 % (37.9-51.0); HEMOGLOBIN 17.5 g/dL (13.5-17.0); LYMPHOCYTES % (AUTO) 14.4 % (13-45); MEAN CORPUSCULAR HEMOGLOBIN 34.5 pg (27.0-33.4); MEAN CORPUSCULAR HGB CONC 34.7 g/dL (32.0-36.0); MEAN CORPUSCULAR VOLUME 100 fl (80-97); MONOCYTES % (AUTO) 8.2 % (3-13); PLATELET COUNT 128 10^3/uL (150-450); RED BLOOD COUNT 5.07 10^6/uL (4.35-5.55); RED CELL DISTRIBUTION WIDTH 12.6 % (11.5-14.0); SEGMENTED NEUTROPHILS % (AUTO) 73.7 % (42-78); TOTAL CELLS COUNTED % (AUTO) 100 %; WHITE BLOOD COUNT 5.6 10^3/uL (4.0-10.5)
[2017-12-24 10:03] LABS: APPEARANCE,URINE CLEAR; BILIRUBIN,URINE NEGATIVE (NEGATIVE); COLOR,URINE AMBER; GLUCOSE, URINE NEGATIVE (NEGATIVE); KETONES,URINE TRACE mg/dL (NEGATIVE); LEUKOCYTE ESTERASE,URINE NEGATIVE (NEGATIVE); NITRITE,URINE NEGATIVE (NEGATIVE); PROTEIN,URINE NEGATIVE (NEGATIVE); URINE SPECIFIC GRAVITY 1.023
[2017-12-24 10:17] LABS: ALANINE AMINOTRANSFERASE 211 U/L (21-72); ALKALINE PHOSPHATASE 51 U/L (38-126); ANION GAP 11 (5-19); ASPARTATE AMINO TRANSFERASE 127 U/L (17-59); BILIRUBIN,DIRECT 0.3 mg/dL (0.0-0.4); BILIRUBIN,TOTAL 1.1 mg/dL (0.2-1.3); BLOOD UREA NITROGEN 14 mg/dL (7-20); CALCIUM 10.1 mg/dL (8.4-10.2); CARBON DIOXIDE 28 mmol/L (22-30); CHLORIDE 103 mmol/L (98-107); GLUCOSE 132 mg/dL (75-110); LIPASE 154.3 U/L (23-300); POTASSIUM 3.8 mmol/L (3.6-5.0); SODIUM 141.6 mmol/L (137-145); TOTAL PROTEIN 7.8 g/dL (6.3-8.2)
[2017-12-24] MEDS ORDERED: NORMAL SALINE 1000 ML 1,000 ML IV ONE (11:31)
[2017-12-24 11:33] LABS: CHLAM PCR NOT DETECTED (NOT DETECT); GON PCR NOT DETECTED (NOT DETECT)
--- NOTE | 2017-12-24 12:39 | ER Document Report ---
ED General - General Chief Complaint: Abdominal Pain Stated Complaint: BLOOD IN URINE/ABDOMINAL PAIN Time Seen by Provider: 12/24/17 09:18 Mode of Arrival: Ambulatory TRAVEL OUTSIDE OF THE [place] IN LAST 30 DAYS: No - HPI Patient complains to provider of: Upper abdominal pain concerning for hematuria dysuria Notes: Patient coming in for upper abdominal pain hematuria dysuria. Patient is Swedish-speaking and translation provided by Samreen patient states symptoms ongoing for the last 3 days patient is a chronic alcoholic seen multiple times here for acute alcoholism states he quit approximate 24 hours ago states cannot sleep at night prior. Patient otherwise denies any nausea vomiting fevers or chills. Denies any penile discharge. - Related Data Allergies/Adverse Reactions: No Known Allergies Allergy (Verified 11/22/17 19:55) Past Medical History - General Information source: Patient - Social History Smoking Status: Current Every Day Smoker Frequency of alcohol use: Heavy Drug Abuse: Marijuana Family History: Reviewed & Not Pertinent Patient has suicidal ideation: No Patient has homicidal ideation: No Renal/ Medical History: Denies: Hx Peritoneal Dialysis Review of Systems - Review of Systems Constitutional: No symptoms reported EENT: No symptoms reported Cardiovascular: No symptoms reported Respiratory: No symptoms reported Gastrointestinal: Abdominal pain Genitourinary: Dysuria Male Genitourinary: No symptoms reported Musculoskeletal: No symptoms reported Skin: No symptoms reported Hematologic/Lymphatic: No symptoms reported Neurological/Psychological: No symptoms reported -: Yes All other systems reviewed and negative Physical Exam - Vital signs Vitals: Temp Pulse Resp BP Pulse Ox 98.2 F 76 18 128/89 H 98 12/24/17 09:03 12/24/17 09:03 12/24/17 09:03 12/24/17 09:03 12/24/17 09:03 Interpretation: Normal - General General appearance: Appears well, Alert - HEENT Head: Normocephalic, Atraumatic Eyes: Normal Pupils: PERRL - Respiratory Respiratory status: No respiratory distress Chest status: Nontender Breath sounds: Normal Chest palpation: Normal - Cardiovascular Rhythm: Regular Heart sounds: Normal auscultation Murmur: No - Abdominal Inspection: Normal Distension: No distension Bowel sounds: Normal Tenderness: Nontender Organomegaly: No organomegaly - Back Back: Normal, Nontender - Extremities General upper extremity: Normal inspection, Nontender, Normal color, Normal ROM , Normal temperature General lower extremity: Normal inspection, Nontender, Normal color, Normal ROM , Normal temperature, Normal weight bearing. No: Mattie's sign - Neurological Neuro grossly intact: Yes Cognition: Normal Orientation: AAOx4 [place] Coma Scale Eye Opening: Spontaneous Ynes Coma Scale Verbal: Oriented Ynes Coma Scale Motor: Obeys Commands Ynes Coma Scale Total: 15 Speech: Normal Motor strength normal: LUE, RUE, LLE, RLE Sensory: Normal - Psychological Associated symptoms: Normal affect, Normal mood - Skin Skin Temperature: Warm Skin Moisture: Dry Skin Color: Normal Course - Re-evaluation Re-evalutation: 12/24/17 15:36 Laboratory studies are consistent with patient's chronic alcoholism and dehydration. More likely this with the patient thinks he has hematuria is that his urine was very concentrated. No signs of infection. Patient was given resources for detox will give the patient a prescription for Librium taper for the next few days. Patient was encouraged follow-up with outside resources. - Vital Signs Vital signs: Temp Pulse Resp BP Pulse Ox 98.2 F 76 18 128/89 H 98 12/24/17 09:03 12/24/17 09:03 12/24/17 09:03 12/24/17 09:03 12/24/17 09:03 - Laboratory Result Diagrams: 12/24/17 09:39 12/24/17 09:39 Laboratory results interpreted by me: 12/24/17 12/24/17 12/24/17 09:39 09:39 09:45 Hgb 17.5 H MCV 100 H MCH 34.5 H Plt Count 128 L Glucose 132 H AST 127 H ALT 211 H Urine Ketones TRACE H Urine Urobilinogen 4.0 H Discharge - Discharge Clinical Impression: History of chronic alcohol use, Dehydration Abdominal pain Qualifiers: Abdominal location: unspecified location Qualified Code(s): R10.9 - Unspecified abdominal pain Disposition: HOME, SELF-CARE Instructions: Alcohol Withdrawl ([facility]), Chronic Alcoholism ([facility]), Dehydration ( [facility]), Gastritis ([facility]) Additional Instructions: Your abdominal pain is more likely related to your alcohol use. Please use Librium as provided. Return to the ER if symptoms worsen. Take medications as prescribed. Please follow-up with the resources provided. Prescriptions: Chlordiazepoxide HCl [Librium 25 mg Capsule] 1 cap PO QID #10 capsule Omeprazole 20 mg PO DAILY #20 capsule. Sucralfate [Carafate 1 gm Tablet] 1 gm PO ACHS #60 tablet Referrals: [facility] [Outside] - Follow up as needed
== END 2017-12-24 13:45 | disposition home or self-care (01) ==
LOC: ER 08:56
DX: F10.20 Alcohol dependence, uncomplicated (principal); E86.0 Dehydration; R10.9 Unspecified abdominal pain; R31.9 Hematuria, unspecified; R10.10 Upper abdominal pain, unspecified; R30.0 Dysuria; F17.200 Nicotine dependence, unspecified, uncomplicated
CPT/HCPCS: 99284; 96360; 36415; 80307; 83690; 85025; 80053; 81001; 87491; 87591; J7030